=== PATIENT | female | born 1990 | race Caucasian/White ===

== ENCOUNTER 2017-05-13 19:37 | Inpatient (IN) | payer OTHER ==
[~2017-05-13] VITALS: Ht 162.6 cm; Wt 72.6 kg
[2017-05-13 20:08] VITALS: BP 125/78
--- NOTE | 2017-05-13 21:04 | NUR ---
PT AMBULATED TO ER BED 08
--- NOTE | 2017-05-13 21:15 | NUR ---
PATIENT IS A 26 Y/O FEMALE WHO PRESENTS TO THE ED C/O OF R FLANK PAIN. PT REPORTS HAPPENING X5 DAYS AGO. PT STATES 9/10 SHARP PAIN THAT RADIATES TO THE BACK. PT REPORTS NAUSEA X5 DAYS, DENIES V/D. PATIENT AAOX4, RR EVEN/UNLABORED. PT REPOSITIONED FOR COMFORT, BED IN LOWEST POSITION. ER MD DR. TORO NOTIFIED. WILL CONTINUE TO MONITOR.
--- NOTE | 2017-05-13 21:16 | NUR ---
Dr. Shen evaluating patient at bedside.
--- NOTE | 2017-05-13 21:18 | NUR ---
PT TAKEN TO CT
[2017-05-13] MEDS ORDERED: NACL 0.9% 500 ML IV ONE (21:19)
[2017-05-13] MEDS ORDERED: KETOROLAC 30 MG/ML VIAL IVP ONE (21:20)
--- NOTE | 2017-05-13 21:36 | NUR ---
PT RETURN FROM CT
[2017-05-13] MEDS ORDERED: metroNIDAZOLE 500 MG/NS PREMIX 100 ML IV ONE (21:40)
[2017-05-13] MEDS ORDERED: cefTRIAXone 1,000 MG VIAL ONE (22:03)
[2017-05-13 22:11] LABS: BASOPHILS # (AUTO) 0.4 K/uL (0.00-0.22); EOSINOPHILS # (AUTO) 0.2 K/uL (0-0.4); HEMATOCRIT 41.2 % (36-48); HEMOGLOBIN 13.8 g/dL (12.0-16.0); LYMPHOCYTES # (AUTO) 2.9 K/uL (2.5-16.5); MEAN CORPUSCULAR HEMOGLOBIN 29 pg (27-31); MEAN CORPUSCULAR HGB CONC 33 g/dL (33-37); MEAN CORPUSCULAR VOLUME 86 fL (80-94); MONOCYTES # (AUTO) 0.6 K/uL (0.8-1.0); NEUTROPHILS # (AUTO) 4.3 K/uL (1.8-7.7); PLATELET COUNT (AUTO) 354 K/uL (140-450); RED BLOOD CELL COUNT(AUTO) 4.78 MIL/uL (4.20-5.40); WHITE BLOOD COUNT (AUTO) 8.4 K/uL (4.8-10.8)
[2017-05-13 22:22] LABS: ANION GAP 7.4 (8-16); CARBON DIOXIDE 31.3 mmol/L (21-32); CREATININE 0.6 mg/dL (0.6-1.3); POTASSIUM 3.7 mmol/L (3.5-5.1)
[2017-05-13 22:27] LABS: ALBUMIN 4.1 g/dL (3.4-5.0); TOTAL BILIRUBIN 0.3 mg/dL (0.0-1.0)
[2017-05-13 22:31] LABS: PROTHROMBIN TIME 11.4 secs (10.8-13.4)
[2017-05-13] MEDS: NACL 0.9% 1,000 ML IV SCH (22:38)
[2017-05-13] MEDS ORDERED: ONDANSETRON 4 MG/2 ML VIAL IVP PRN (22:40)
[2017-05-13] MEDS ORDERED: MORPHINE SULFATE 2 MG/ML SYR IVP PRN (22:40)
[2017-05-13] MEDS ORDERED: ACETAMINOPHEN 325 MG TAB PO PRN (22:40)
--- NOTE | 2017-05-13 23:27 | NUR ---
Patient will be admitted to care of DR ALEGRIA. Admited to MED/SURG. Will go to room 104B. Belongings list completed. Report to SOUMYA SHETH.
[2017-05-14] VITALS: BP 128/75
--- NOTE | 2017-05-14 | NUR ---
RECEIVED FROM ER PER WHEELCHAIR AWAKE AND ALERT. ORIENTED X 4. ROM X 4. CLEAR SPEECH. ORIENTED X 3. ACCOMPANIED BY SPOUSE. SOMALI SPEAKING. USING [employer] #[id number]/SIEBEL SOLUTION ARCHITECT. CALL LIGHT USE EXPLAINED TO HER AND SPOUSE. ENCOURAGED TO CALL FOR ANY PAIN SHE WILL HAVE. SAYS PAIN AT THIS TIME IS TOLERABLE RT MEDICATED IN ER. IVF SITE TO LEFT WRIST #22. WITH NS AT 100 ML/H INFUSING. GOOD BLOOD RETURN IN IV SITE. CARE PLANS FOR THE NIGHT DISCUSSED WITH THEM. DX. ACUTE APPENDICITIS AND SCHEDULED FOR OPERATION IN A.M. REMINDED AND EXPLAINED NPO WITH SIEBEL SOLUTION ARCHITECT. SKIN INTACT. AFEBRILE.
--- NOTE | 2017-05-14 01:32 | NUR ---
PT. STILL AWAKE AND READING A BOOK. NO SOB. DENIES PAIN AT THIS TIME. "MAS MAGDALENO" TOLERABLE . CALL LIGHT WITH IN REACH.
--- NOTE | 2017-05-14 02:00 | NUR ---
BILATERAL SEQUENTIALS NOT APPLIED RT PT. GOES BRP BY HERSELF. INDEPENDENT.
[2017-05-14] MEDS: NACL 0.9% 1,000 ML IV SCH (02:58)
--- NOTE | 2017-05-14 03:56 | NUR ---
SLEEPING. NO RESTLESSNESS NOTED.
[2017-05-14] MEDS ORDERED: PIPERACILLIN/TAZOBACTAM 3.375 GM VIAL IV ONE ×2 (04:40)
[2017-05-14] MEDS ORDERED: PIPERACILLIN/TAZOBACTAM 3.375 GM in DEXTROSE 5% 50 ML IV SCH (05:00)
[2017-05-14 05:57] LABS: BASOPHILS # (AUTO) 0.2 K/uL (0.00-0.22); BASOPHILS % (AUTO) 2.4 % (0.0-2.0); EOSINOPHILS # (AUTO) 0.2 K/uL (0-0.4); EOSINOPHILS % (AUTO) 2.8 % (0.0-4.0); HEMOGLOBIN 12.5 g/dL (12.0-16.0); LYMPHOCYTES # (AUTO) 2.7 K/uL (2.5-16.5); MEAN CORPUSCULAR HEMOGLOBIN 29 pg (27-31); MEAN CORPUSCULAR HGB CONC 34 g/dL (33-37); MEAN CORPUSCULAR VOLUME 87 fL (80-94); MONOCYTES # (AUTO) 0.5 K/uL (0.8-1.0); MONOCYTES % (AUTO) 6.2 % (1.7-9.3); NEUTROPHILS # (AUTO) 5.1 K/uL (1.8-7.7); NEUTROPHILS % (AUTO) 57.6 % (42.2-75.2); PLATELET COUNT (AUTO) 312 K/uL (140-450); RED BLOOD CELL COUNT(AUTO) 4.26 MIL/uL (4.20-5.40); RED CELL DISTRIBUTION WIDTH 13.2 % (11.6-13.7); WHITE BLOOD COUNT (AUTO) 8.7 K/uL (4.8-10.8)
[2017-05-14 06:40] LABS: ALBUMIN 3.4 g/dL (3.4-5.0); ANION GAP 11.6 (8-16); CARBON DIOXIDE 24.2 mmol/L (21-32); CREATININE 0.5 mg/dL (0.6-1.3); POTASSIUM 3.8 mmol/L (3.5-5.1); TOTAL BILIRUBIN 0.3 mg/dL (0.0-1.0)
--- NOTE | 2017-05-14 07:10 | NUR ---
RECEIVED PT REPORT AT BEDSIDE FROM [facility], [facility]ENS NURSE. PT IS AAOX4, TAJIK SPEAKER, AND SHOWS NO S/S OF ACUTE DISTRESS ON ROOM AIR. SKIN INTACT. ON MS. PT DENIES PAIN. IV NOTED ON THE L FA WITH IVF'S INFUSING WELL. PT IS AWARE OF POC FOR TODAY, PT VERBALIZED UNDERSTANDING. BED IS IN LOW POSITION WITH CALL LIGHT WITHIN REACH.
--- NOTE | 2017-05-14 07:14 | NUR ---
PT LEFT UNIT IN STABLE CONDITION TO OR.
--- NOTE | 2017-05-14 07:20 | NUR ---
ENDORSED TO THE AM RN FOR CONTINUITY OF CARE. AWAKE AND ALERT.
[2017-05-14] MEDS ORDERED: PROPOFOL 200 MG/20 ML VIAL IV ONE (07:25)
[2017-05-14] MEDS ORDERED: SUCCINYLCHOLINE CHLORIDE 200 MG/10 ML VIAL IVP ONE (07:25)
[2017-05-14] MEDS ORDERED: DESFLURANE 240 ML BTL INH ONE (07:25)
[2017-05-14] MEDS ORDERED: ROCURONIUM 50 MG/5 ML VIAL IV ONE (07:25)
[2017-05-14] MEDS ORDERED: ONDANSETRON 4 MG/2 ML VIAL ONE (07:25)
[2017-05-14] MEDS ORDERED: DEXAMETHASONE 4 MG/ML VIAL ONE (07:25)
[2017-05-14] MEDS ORDERED: KETOROLAC 60 MG/2 ML VIAL IM ONE (07:25)
[2017-05-14] MEDS ORDERED: NEOSTIGMINE 1:1000 10 MG/10 ML VIAL ONE (07:25)
[2017-05-14] MEDS ORDERED: GLYCOPYRROLATE 0.2 MG/ML VIAL ONE (07:25)
[2017-05-14] MEDS ORDERED: BUPIVACAINE-MPF 0.25% 30 ML VIAL INJ ONE (07:29)
[2017-05-14] MEDS ORDERED: MIDAZOLAM 2 MG/2 ML VIAL ONE (07:44)
[2017-05-14] MEDS ORDERED: MORPHINE SULFATE 4 MG/ML SYR ONE ×2 (07:44→09:44)
[2017-05-14] MEDS ORDERED: fentaNYL 0.05 MG/ML VIAL ONE (07:44)
--- NOTE | 2017-05-14 08:05 | NUR ---
FAXED INITIAL REVIEW TO [facility] [phone] PHONE FARZAD [phone]
[2017-05-14] MEDS ORDERED: METOCLOPRAMIDE 10 MG/2 ML INJ VIAL IVP PRN (08:40)
[2017-05-14] MEDS ORDERED: MIDAZOLAM 2 MG/2 ML VIAL IV ONE (08:40)
[2017-05-14] MEDS ORDERED: MORPHINE SULFATE 4 MG/ML SYR IVP PRN ×2 (08:40)
[2017-05-14] MEDS ORDERED: MORPHINE SULFATE 2 MG/ML SYR IVP PRN (08:40)
[2017-05-14] MEDS: DEXT 5% / NACL 0.45% 1,000 ML IV SCH ×2 (09:00→20:24)
--- NOTE | 2017-05-14 09:04 | NUR ---
PATIENT HAS BEEN SCREENED AND CATEGORIZED MODERATE NUTRITION RISK. PATIENT WILL BE SEEN WITHIN 3-5 DAYS OF ADMISSION. 05/16/17-05/18/[address]
[2017-05-14 10:10] VITALS: BP 115/67
--- NOTE | 2017-05-14 10:10 | NUR ---
PT IS BACK ON UNIT FROM PROCEDURE PT V/S STABLE AND CHARTED, PT STATES 6/10 ABD PAIN AT INCISION SITE. WILL ADMINISTER PRN PAIN MEDICATION MORPHINE 2 MG IVP. PT WAS GIVEN ICE CHIPS AND PT IS ABLE TO SWALLOW WITH NO DIFFICULTY.
[2017-05-14] MEDS: PIPER/TAZO 3.375GM/D5W PREMIX 50 ML IV SCH ×2 (12:34→20:21)
--- NOTE | 2017-05-14 12:35 | NUR ---
ADMINISTERED SCHEDULED MEDICATIONS. IV ABX INFUSING WELL. PT STATES 5/10 TOLERABLE ABD PAIN. ALL NEEDS MET AT THIS TIME. WILL CONTINUE TO MONITOR.
--- NOTE | 2017-05-14 13:21 | NUR ---
PT IS SLEEPING NO IS STARTED AT THIS TIME
--- NOTE | 2017-05-14 15:00 | NUR ---
PT IS SLEEPING AND SHOWS NO S/S OF ACUTE DISTRESS ON ROOM AIR. PT FAMILY MEMBER AT BEDSIDE.
[2017-05-14] MEDS: HYDROcodone/APAP 5/325 MG 1 TAB TAB PO PRN ×2 (15:59→20:36)
--- NOTE | 2017-05-14 15:59 | NUR ---
PT C/O 6/10 ABD PAIN ADMINISTERED NORCO 5/325 MG PO. WILL REASSESS IN ONE HR.
[2017-05-14 16:00] VITALS: BP 103/56
--- NOTE | 2017-05-14 16:59 | NUR ---
PT STATES NO ABD PAIN AT THIS TIME. PT NEEDS MET. BED IS LOWERED WITH CALL LIGHT WITHIN REACH.
--- NOTE | 2017-05-14 18:50 | NUR ---
PT IN PAIN UNABLE TO PERFORM IS.
--- NOTE | 2017-05-14 19:15 | NUR ---
GAVE PT REPORT AT BEDSIDE TO NIGHT NURSE. PT ENDORSED IN STABLE CONDITION. PT IS AAOX4 AND SHOWS NO S/S OF ACUTE DISTRESS ON ROOM AIR. PT FAMILY AT BEDSIDE.
--- NOTE | 2017-05-14 19:20 | NUR ---
RECEIVED FROM AM RN WALKING BACK TO BED FROM RESTROOM. WENT TO URINATE. DENIES PAIN AT THIS TIME. ABLE TO VERBALIZE SIMPLE NEEDS. FAMILY MEMBERS AROUND. CALL LIGHT WITH IN REACH. LAP. APPY SITE INTACT AND NO BLEEDING. ENCOURAGED TO CALL FOR HELP. ENCOURAGED TO USE SPIROMETER MACHINE TO RE-EXPAND LUNGS AFTER POST OP . AWARE. "OK" CARE PLANS FOR THE NIGHT DISCUSSED WITH THEM.
[2017-05-14 20:30] VITALS: BP 113/64
--- NOTE | 2017-05-14 21:29 | NUR ---
SLEEPING AT THIS TIME. NO RESTLESSNESS NOTED. MEDICATED WITH NORCO AND ZOFRAN FOR ANTI-NAUSEA .
--- NOTE | 2017-05-15 | NUR ---
SLEEPING. PILLOW SUPPORT TO PRESSURE AREAS. TURNED TO SIDES BY CNAS. ABLE TO VERBALIZE NEEDS WELL.
[2017-05-15 04:06] VITALS: BP 114/62
[2017-05-15] MEDS: DEXT 5% / NACL 0.45% 1,000 ML IV SCH (04:14)
[2017-05-15] MEDS: PIPER/TAZO 3.375GM/D5W PREMIX 50 ML IV SCH ×2 (04:15→12:26)
--- NOTE | 2017-05-15 05:04 | NUR ---
NEEDS ATTENDED TO. USES CALL LIGHT FOR HELP AT ALL TIMES. A/O X 4. TOTAL CARE. SLEEP WELL.
[2017-05-15 06:08] LABS: BASOPHILS # (AUTO) 0.1 K/uL (0.00-0.22); BASOPHILS % (AUTO) 0.9 % (0.0-2.0); EOSINOPHILS # (AUTO) 0.1 K/uL (0-0.4); EOSINOPHILS % (AUTO) 0.6 % (0.0-4.0); HEMATOCRIT 32.7 % (36-48); LYMPHOCYTES # (AUTO) 1.4 K/uL (2.5-16.5); LYMPHOCYTES % (AUTO) 13.7 % (20.5-51.1); MEAN CORPUSCULAR HEMOGLOBIN 29 pg (27-31); MEAN CORPUSCULAR HGB CONC 34 g/dL (33-37); MEAN CORPUSCULAR VOLUME 86 fL (80-94); MONOCYTES # (AUTO) 0.6 K/uL (0.8-1.0); MONOCYTES % (AUTO) 5.6 % (1.7-9.3); NEUTROPHILS # (AUTO) 8.3 K/uL (1.8-7.7); NEUTROPHILS % (AUTO) 79.2 % (42.2-75.2); PLATELET COUNT (AUTO) 330 K/uL (140-450); RED BLOOD CELL COUNT(AUTO) 3.79 MIL/uL (4.20-5.40); RED CELL DISTRIBUTION WIDTH 13.2 % (11.6-13.7); WHITE BLOOD COUNT (AUTO) 10.5 K/uL (4.8-10.8)
[2017-05-15 06:22] LABS: ANION GAP 13.1 (8-16); CARBON DIOXIDE 25.5 mmol/L (21-32); CREATININE 0.5 mg/dL (0.6-1.3); POTASSIUM 3.6 mmol/L (3.5-5.1)
--- NOTE | 2017-05-15 07:20 | NUR ---
RECEIVED REPORT FROM FIELD PRODUCER RN. PATIENT IS SLEEPING IN BED. NO SIGNS AND SYMPTOMS OF DISTRESS NOTED AT THIS TIME. IV INFUSING TO LEFT WRIST, 22G. SITE IS PATENT, CLEAN, DRY AND INTACT. BED IN LOW POSITION, SIDERAILS UP X2, CALL LIGHT PLACED WITHIN REACH. WILL CONTINUE TO MONITOR PATIENT.
--- NOTE | 2017-05-15 07:35 | NUR ---
ENDORSED TO THE NEXT RN FOR CONTINUITY OF CARE. AWAKE AND ALERT. NO COMPLAINTS DONE. NEEDS ANTICIPATED AND MET.
--- NOTE | 2017-05-15 08:05 | NUR ---
DR. ROLLINS AT BEDSIDE TALKING TO PATIENT. INSTRUCTED PATIENT TO CONTINUE TO AMBULATE AND TRY TO PASS GAS AND HAVE BOWEL MOVEMENT. STATED THAT IF PATIENT CAN TOLERATED SOLID FOOD AND/OR HAS A BOWEL MOVEMENT WILL BE ABLE TO DISCHARGE LONG DR PEREZ IS ON BOARD. WILL FOLLOW THROUGH WITH ORDERS.
--- NOTE | 2017-05-15 09:44 | NUR ---
TOLERATED INCENTIVE SPIROMETRY THERAPY WELL WITHOUT ADVERSE REACTIONS NOTED ENCOURAGED PATIENT WITH ACKNOWLEDGEMENT TO USE INCENTIVE SPIROMETRY EVERY 1-2 HOURS WHILE AWAKE
[2017-05-15 10:00] VITALS: BP 118/62
--- NOTE | 2017-05-15 10:15 | NUR ---
PATIENT WALKING AROUND UNIT WITH SIGNIFICANT OTHER. TOLERATING WELL.
--- NOTE | 2017-05-15 13:30 | NUR ---
DR CHRIS GROSSMAN TO DC PT. PAGED DR ROLLINS.
--- NOTE | 2017-05-15 13:55 | NUR ---
SPOKE WITH DR ROLLINS TO LET HIM KNOW THAT DR PEREZ GAVE THE OKAY TO DISCHARGE PATIENT. WILL FOLLOW THROUGH WITH ORDERS.
[2017-05-15] MEDS ORDERED: DOCU-299 PO (15:03)
[2017-05-15] MEDS ORDERED: ACET-2869 PO ×2 (15:03)
--- NOTE | 2017-05-15 15:40 | NUR ---
GAVE PATIENT DISCHARGE INSTRUCTIONS, ON WHEN TO FOLLOW UP (1-[address] PEREZ), SIGNS AND SYMPTOMS THAT REQUIRE EMERGENCY SERVICES, AND INCISION CARE. PATIENT VERBALIZED UNDERSTANDING. FAMILY WITH PATIENT DURING TIME OF INSTRUCTIONS. IV FLUID DISCONTINUED AT THIS TIME, IV SITE DISCONTINUED, DRESSING APPLIED, CLEAN, DRY AND INTACT. ID BAND REMOVED. PATIENT HAS NO SIGNS AND SYMPTOMS OF DISTRESS AT THIS TIME. WILL ACCOMPANY PATIENT TO FRONT LOBBY.
== END 2017-05-15 15:40 | disposition home or self-care (01) | DRG 225 ==
LOC: MED 19:37 → MTU 22:38
PROVIDERS: ADMIT Hospitalist; ATTEND Hospitalist
PROC: 0DTJ4ZZ Resection of Appendix, Percutaneous Endoscopic Approach (ICD-10-PCS; principal; 2017-05-14 09:40)
DX: K35.80 Unspecified acute appendicitis (principal); E66.9 Obesity, unspecified; R73.03 Prediabetes; R03.0 Elevated blood-pressure reading, without diagnosis of hypertension; Z68.27 Body mass index [BMI] 27.0-27.9, adult
CPT/HCPCS: 36415; 80048; 80053; 82374; 85025; 85610; 85730; 87040; 87081; 88304; 96365; 96368; 96375; 99285; J0330; J0696; J1100; J1885; J2250; J2270; J2405; J2543; J2704; J2710; J3010; J3490; J7030; J7060

== ENCOUNTER 2022-12-11 12:55 | Emergency (ER) | payer OTHER ==
[~2022-12-11] VITALS: Ht 157.5 cm; Wt 49.9 kg
[~2022-12-11 12:55] MED LIST: DOCU-299 PO; HYDR-5122 PO
[2022-12-11 13:02] VITALS: BP 117/78
--- NOTE | 2022-12-11 14:55 | NUR ---
PT AMBULATED TO ER BED 2
--- NOTE | 2022-12-11 15:00 | NUR ---
32YO FEMALE PT C/O PRESSURED/TIGHT FERNANDO BREAST PAIN X1WEEK. REPORTS SUDDEN ONSET AND NOTES WHITE/YELLOW DISCHARGE FROM NIPPLES. STATES SHE FEELS LIKE "URGE TO BREASTFEED". STATES S/S ABOUT 2 YEARS AGO AND TREATED W/ ANTIBIOTICS. DENIES N/V/D, FEVER, CHILLS OR TAKING MEDICATION. PT AAOX4, ON MANAGER CAFE HX: DENIES NKA
--- NOTE | 2022-12-11 15:21 | NUR ---
SIRENA ZHOU AT BEDSIDE FOR EVALUATION
[2022-12-11] MEDS ORDERED: IBUPROFEN 600 MG TAB PO ONE (15:35)
--- NOTE | 2022-12-11 15:50 | NUR ---
us at bedside
[2022-12-11] MEDS ORDERED: IBUP-2213 PO (16:40)
[2022-12-11 17:00] VITALS: BP 119/65
--- NOTE | 2022-12-11 17:00 | NUR ---
Patient discharged with v/s stable. Written and verbal after care instructions FOR BREAST TENDERNESS given and explained. Patient alert, oriented and verbalized understanding of instructions. Ambulatory with steady gait. All questions addressed prior to discharge. ID band removed. Patient advised to follow up with PMD. Rx of IBUPROFEN given. Opportunity to ask questions provided and answered.
--- NOTE | 2022-12-11 17:25 | NUR ---
The patient's care was reviewed and supervised by Joya Dougherty RN.
== END 2022-12-11 17:00 | disposition home or self-care (01) ==
LOC: MED 12:55
DX: N64.4 Mastodynia (principal); Z79.899 Other long term (current) drug therapy
CPT/HCPCS: 76641; 99284; Q0092

== ENCOUNTER 2023-05-21 14:31 | Emergency (ER) | payer OTHER ==
[~2023-05-21] VITALS: Ht 170.2 cm; Wt 72.6 kg
[~2023-05-21 14:31] MED LIST changes: +IBUP-2213 PO
[2023-05-21 15:14] VITALS: BP 116/70; PULSE 72; RESP 20; TEMP 98; O2SAT 98
== END 2023-05-21 17:30 | disposition left against medical advice (07) ==
LOC: MED 14:31
DX: N64.4 Mastodynia (principal); Z79.899 Other long term (current) drug therapy
CPT/HCPCS: 99281

== ENCOUNTER 2023-06-06 07:28 | Observation (INO) | payer OTHER ==
[~2023-06-06] VITALS: Ht 165.1 cm; Wt 68.0 kg
[2023-06-06 07:34] VITALS: BP 116/77; PULSE 62; RESP 14; TEMP 97.7; O2SAT 98
[2023-06-06] MEDS ORDERED: NACL 0.9% 1,000 ML IV ONE (08:10)
[2023-06-06 09:09] LABS: BASOPHILS % (AUTO) 0.9 % (0.0-2.0); EOSINOPHILS # (AUTO) 0.6 K/uL (0-0.4); EOSINOPHILS % (AUTO) 10.8 % (0.0-4.0); HEMATOCRIT 38.6 % (36-48); HEMOGLOBIN 12.8 g/dL (12.0-16.0); LYMPHOCYTES # (AUTO) 1.7 K/uL (2.5-16.5); MEAN CORPUSCULAR HEMOGLOBIN 28 pg (27-31); MEAN CORPUSCULAR HGB CONC 33 g/dL (33-37); MONOCYTES # (AUTO) 0.4 K/uL (0.8-1.0); MONOCYTES % (AUTO) 8.2 % (1.7-9.3); NEUTROPHILS # (AUTO) 2.7 K/uL (1.8-7.7); NEUTROPHILS % (AUTO) 49.1 % (42.2-75.2); PLATELET COUNT (AUTO) 352 K/uL (140-450); RED BLOOD CELL COUNT(AUTO) 4.54 MIL/uL (4.20-5.40); RED CELL DISTRIBUTION WIDTH 14.4 % (11.6-13.7); WHITE BLOOD COUNT (AUTO) 5.5 K/uL (4.8-10.8)
[2023-06-06 09:12] VITALS: O2SAT 98
[2023-06-06 09:15] LABS: ANION GAP 13.9 (8-16); CALCIUM 8.8 mg/dL (8.5-10.1); CARBON DIOXIDE 27.2 mmol/L (21-32); CREATININE 0.6 mg/dL (0.6-1.3); POTASSIUM 4.1 mmol/L (3.5-5.1)
[2023-06-06 09:20] LABS: INR 1.11 (0.8-1.2); PARTIAL THROMBOPLASTIN TIME 29.2 secs (22-35.6); PROTHROMBIN TIME 11.6 secs (10.8-13.4)
[2023-06-06] MEDS ORDERED: ONDANSETRON 4 MG/2 ML VIAL ONE ×2 (09:32→11:37)
[2023-06-06] MEDS ORDERED: PROPOFOL 200 MG/20 ML VIAL IV ONE ×2 (11:32→11:37)
[2023-06-06] MEDS ORDERED: HYDROmorphone PFS 2 MG/ML SYR ONE (11:33)
[2023-06-06] MEDS ORDERED: MIDAZOLAM 2 MG/2 ML VIAL ONE (11:33)
[2023-06-06] MEDS ORDERED: DEXAMETHASONE 4 MG/ML VIAL ONE (11:37)
[2023-06-06] MEDS ORDERED: SEVOFLURANE 250 ML BTL INH ONE (11:55)
[2023-06-06] MEDS ORDERED: HYDROmorphone 1 MG/ML AMP IVP PRN ×2 (12:05→12:50)
[2023-06-06] MEDS ORDERED: MORPHINE SULFATE 2 MG/ML SYR IVP PRN (12:05)
[2023-06-06] MEDS ORDERED: DEXT 5% /NACL 0.9% 1,000 ML IV SCH (12:05)
[2023-06-06] MEDS ORDERED: MORPHINE SULFATE 4 MG/ML SYR IV PRN (12:05)
[2023-06-06] MEDS ORDERED: ONDANSETRON 4 MG/2 ML VIAL IV PRN (12:05)
[2023-06-06] MEDS ORDERED: BUPIVACAINE-MPF 0.25% 30 ML VIAL INJ ONE (12:11)
[2023-06-06] MEDS ORDERED: fentaNYL citrate 0.05 MG/ML VIAL ONE (12:26)
[2023-06-06] MEDS ORDERED: ONDANSETRON 4 MG/2 ML VIAL IVP PRN (12:50)
[2023-06-06] MEDS ORDERED: MEPERIDINE 25 MG/ML SYR IVP PRN (12:50)
[2023-06-06] MEDS ORDERED: ACET-9535 PO (12:51)
== END 2023-06-06 15:40 | disposition home or self-care (01) ==
LOC: MED 07:28 → INTOOBSV 12:05 → MMU 12:05
PROVIDERS: ADMIT Surgery; ATTEND Surgery
DX: N61.1 Abscess of the breast and nipple (principal)
CPT/HCPCS: 19020; 19101; 36415; 71045; 80048; 85025; 85610; 85730; 86886; 86900; 86901; 87070; 87075; 87205; 88304; 99284; G0378; J1100; J1170; J2250; J2405; J2704; J3010; J3490